=== PATIENT | female | born 1995 | race Caucasian/White ===

== ENCOUNTER 2018-12-29 09:36 | Day surgery (SDC) | payer OTHER ==
--- NOTE | 2018-12-28 22:17 | PDGENHP ---
History and Physical - Chief Complaint LEFT HIP PAIN - History of Present Illness 1. Left Femoroacetabular impingement (YAIMA) 2. Left~Borderline Hip Dyplasia 3. 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 Richardson (Right in 10/2011 and left side late 11/11). Took a year to recover and was able to return to skating - but only ice dancing , not singles - because landing jumps was painful. No longer painful to sit any longer. ~Was able to compete in ice dancing on a national level through college. Prior to her right hip scope she also reports a sensation of right hip jumping out of the socket while she was figure skating. 1.5 years ago had new right hip pain, much less - but does occur occasionally on the left hip. Left hip never hurts, unless right hip is hurting. Saw Dr. Richardson in April who referred her to us.~ Presentation today is of~anterior~LEFT~hip pain - deep. ~The hip~does not~wake her~at night and~does~click and catch on~her. Sitting~can be uncomfortable~for her.~Jameeldoes not~report suffering from lower back pain episodes. Jameelhas~participated in physical therapy for many years~and~has not~tried other conservative measures including. She~has not~received sufficient symptomatic improvement. Jameelhas~utilized medication for pain management, including NSAID.~ Jameelhas used medication for intermittently for~~years. Jameelalso has pain in left - just not as bad as right. Jameelunderstands that~bartolo~has a hip and pelvis problem which should be researched and wishes to get a better understanding of~her~hip status, followed by an establishment of a treatment strategy, hoping~she~would be able to get back to~her~well being active life. History: Past medical history:~~ Patient~~has no past medical history on file.~Mother reports h/o tibial torsion. ~ Relevant familial history:~None which is relevant~ Past surgical history:~ 10/2011 R hip arthroscopy, 11/2011 L hip arthroscopy by Dr. Richardson, uterine polyp removal 2016. Jameeldenies problematic issues with general anesthesia in the past - except PONV. I have reviewed, verified and agree with the past medical, surgical, family and social history. ALLERGIES:~is allergic to codeine; other; and penicillins. Objective: Physical Examination: Jameelis 5~feet~3~inches tall and weighs~162~Lbs. Jameelis AAO x3; bartolo~ is well-nourished, in NAD. Skin is warm and dry. ~Breathing is non-labored. ~CV with RRR by pulse. Abdomen is soft, NTND. Currently,~bartolo~walks with a~normal~gait. Trendelenburg sign is~negative~and proprioception~is reduced,~both~sides. She~presents~with mild~signs of joint laxity.~Beightons Score:~5 ~ Lower spine examination is~negative~for sciatic or femoral nerve irritation with negative~SLR &~femoral stretch tests. Range of motion of the spine is normal~for flexion, extension, and rotations,~with no~associated pain. Strength, Sensation and pulses are~normal -~bilaterally Ankles and knees exams are~normal~and~no~mal-alignment is evident.~ She~has~no leg length discrepancy. Thigh circumference is~symmetric~with no evidence for muscle atrophy~on both~ sides. Hip ROM (degrees): FL ER At 90~hip FL IR At 90~hip FL AB AD EX IR Neutral hip ER Neutral hip R 95 50 25 40 5 10 50 35 L 95 50 30 40 5 10 60 30 Specific hip and pelvis tests: Impingement Test DAKOTA Roll Add. Longus R +++ Negative Negative Negative L +++ Negative Negative Negative Glut. Med ITB Posterior Imp R Negative 5/5 strength Negative 5/5 strength Negative L Negative 5/5 strength Negative 5/5 strength Negative Squeeze test measured~normal Bony Symphysis pubis is~pain free~to touch while concentric activity of the rectus abdominis, does not~produce pain at its insertion. Ilio Psos specific tests are~negative for pain during cycling for~both hips~and remarkable for painful snap HF has~no pain~both hips. No~~capsule tenderness bilaterally Greater trochanteric burse is~painful~on both hips.~+ only Piriformis tests: FAIR is~negative,~with no~local signs of neuritis related to sciatic nerve. SIJs examination is~normal~with~normal~DAKOTA in relation and local tenderness. Hamstrings tests are~negative~both hips. On a daily basis, the following percentages reflect~Saray's overall total pain: Deep hip:~100% Imaging: Radiology studies which I~have personally reviewed, analyzed and measured are below: XR: AP of the hip and pelvis: Performed in a~good~technique Coccyx to pubic symphysis distance~2.9~cm. 0~degrees caudal [place]~Lines are preserved. No~Pathological signs are seen in the Symphysis Pubis.~ No~Pathological signs are seen at the Ischial~tuberosity. ~ Specific measurements show: NSA~ LCE Sourcil~Angle Sharp's angle Lat. Cam Lat. Pincer C.Over~sign Head~Coverage % ATDmm R 137 17 13 48 N N N 69 + L 132 24 9 39 N N N 79 + Pos. wall sign ISS NAD ~~Dysplasia Comments R Negative Negative 20~mm ++ L Negative Negative 17.3~mm + Sclerosis Sup. Lat. OA Cysts Joint Space-WBZ Joint Space-Medial R Negative Negative Negative 4.4~mm 4.8~mm L Negative Negative Negative 4.9~mm 4.3~mm X Table lateral: Anterior cam lesion is~not~seen~on both hips. Alpha Angle: ~ Right~44~dergrees Left~47~degrees MRI shows:~03/24/18 of left hip shows anterior labral tear, small cysts at likely location of anchors, small amount of cartilage fissuring. Potential capsular adhesion to labrum anteriorly.~ Impression and plan:Carly So~is a~23 y.o.~active female~suffering from symptomatic~LEFT~hip pain due to Hip Dyplasia~and clinical femoral antetorsion (h/o hip scope for YAIMA with Dr. Richardson in 2010)~causing significant disability to~her~and altering~her~ sport and life activities. Physical examination, imaging, and~her~story correspond with the diagnosis mentioned above. I~explained that hip dysplasia is a condition wherein the hip joint has excessive play and instability due to a variety of factors, including the depth and adequacy of the socket, the orientation of the femur bone, and ligament laxity around the hip joint. Dysplasia ranges in severity from borderline to jada, with treatment options being specific to the specific nature of the problem. Left untreated, the instability in the hip joint can cause progressive tearing of the labrum and deterioration of the surface cartilage, ultimately resulting in progressive osteoarthritis of the hip. I reviewed conservative treatment options for dysplasia including activity modification to avoid positions of instability, physical therapy, non-steroidal anti-inflammatory medications, and various injections (corticosteroid and PRP) aimed at reducing inflammation in the hip joint or/and preventing dynamic instability and impingement. Although these measures may help to buy time, they are not a definitive solution to the problem given the underlying abnormality in the shape of the hip joint. Patients who have failed conservative management and continue to experience symptoms are candidates for definitive surgical treatment, which may consist of hip arthroscopy alone or in combination with more invasive bony realignment procedures of the hip socket and/or femur called periacetabular osteotomy (IGNACIO) or derotational femoral osteotomy (DFO). Hip arthroscopy typically includes treating the labrum with either repair or reconstruction of the torn labrum; as well as addressing the underlying abnormalities by restoring the normal shape of the hip joint. ~If the cartilage is damaged a Microfracture surgical procedure may also be necessary to help stimulate the growth of fibrocartilage. If a patient requires a labral reconstruction or a Microfracture, the initial rehabilitation from the surgery may take longer, but the skilled nursing results are typically favorable. Saray~will review the info presented. In order to obtain more detailed information regarding the alignment, orientation, and shape of the bony hip and pelvis I will order a CT scan to be performed. The results of the CT scan, including femoral torsion and acetabular version measured values and 3D images, will aid me in deciding on the best treatment strategy and surgical pre-planning. Saray will follow-up with us after her CT to discuss plans moving forward. She will also do a formal trial of PT with this new hip pain over the past 1.5 years. Saray~is happy with this plan. I have also supplied~her~with handouts, outlining the expected surgical treatment and rehab involved. I wish~Saray~all the best, ~~ Mara Becker MD History Information - Allergies/Home Medication List Allergies/Adverse Reactions: codeine Allergy (Verified 12/26/18 12:43) Vomiting Penicillins Allergy (Verified 12/26/18 12:43) itching/rash shellfish derived Allergy (Verified 12/26/18 12:43) Anaphylaxis Home Medications: Cetirizine [ZyrTEC 10 mg (*)] PRN 06/27/18 [Last Taken 06/30/18] Multivitamins [Multivitamin (*)] 06/27/18 [Last Taken 12/26/18] Naproxen Sodium [Aleve 220 MG (*)] 12/26/18 [Last Taken Unknown] I have personally reviewed and updated: medical history - Social History Smoking Status: Never smoked Review of Systems Review of Systems: Physical Exam Physical Exam:
[2018-12-29] MEDS ORDERED: BUPIVACAINE 0.25% 30 ML SDV ONE (09:52)
[2018-12-29] MEDS ORDERED: EPINEPHrine 30 MG/30 ML MDV (0.1 MG/0.1 ML) ONE (09:52)
[2018-12-29] MEDS ORDERED: ceFAZolin 2 GM/DEXTROSE 100 ML IV ONE (09:57)
[2018-12-29] MEDS ORDERED: ACETAMINOPHEN 500 MG TAB PO ONE (09:57)
[2018-12-29] MEDS ORDERED: PREGABALIN 150 MG CAP PO ONE (09:57)
[2018-12-29] MEDS ORDERED: LR 1,000 ML IV ONE (09:58)
[2018-12-29] MEDS ORDERED: LIDOCAINE 1% 2 ML INJ ID PRN (09:58)
[2018-12-29] MEDS ORDERED: DEXAMETHASONE 4 MG/ML VIAL ONE (11:00)
[2018-12-29] MEDS ORDERED: ROCURONIUM 100 MG/10 ML VIAL ONE (11:00)
[2018-12-29] MEDS ORDERED: LIDOCAINE 2% 100 MG/5 ML SYR ONE (11:00)
[2018-12-29] MEDS ORDERED: fentaNYL 100 MCG/2 ML INJ ONE ×5 (11:00→17:28)
[2018-12-29] MEDS ORDERED: PROPOFOL 200 MG/20 ML VIAL ONE (11:01)
[2018-12-29] MEDS ORDERED: SCOPOLAMINE HYDROBROMIDE 1 MG/3 DAYS PATCH TD ONE (11:35)
[2018-12-29] MEDS ORDERED: MIDAZOLAM 2 MG/2 ML VIAL IVP ONE (11:49)
--- NOTE | 2018-12-29 11:51 | PDANEPAE ---
ANE History of Present Illness left hip scope for IGNACIO net week ANE Past Medical History - Cardiovascular History Hx Hypertension: No Hx Arrhythmias: No Hx Chest Pain: No Hx Coronary Artery / Peripheral Vascular Disease: No Hx CHF / Valvular Disease: No Hx Palpitations: No - Pulmonary History Hx COPD: No Hx Asthma/Reactive Airway Disease: No Hx Recent Upper Respiratory Infection: No Hx Oxygen in Use at Home: No Hx Sleep Apnea: No Sleep Apnea Screening Result - Last Documented: Negative - Neurologic History Hx Cerebrovascular Accident: No Hx Seizures: No Hx Dementia: No - Endocrine History Hx Diabetes: No - Renal History Hx Renal Disorders: Yes Renal History Comment: hx of uti's - Liver History Hx Hepatic Disorders: No - Neurological & Psychiatric Hx Hx Neurological and Psychiatric Disorders: No - Cancer History Hx Cancer: No - Congenital Disorder History Hx Congenital Disorders: Yes Congenital History Comment: HIP DYSPLASIA - GI History Hx Gastrointestinal Disorders: No - Other Health History Other Health History: none - Chronic Pain History Chronic Pain: Yes (left hip) - Surgical History Prior Surgeries: 07/07/18 right IGNACIO with [facility]. RT HIP FEMOROPLASTY/LABRAL REPAIR 06/30/18. SONIA HIP SCOPE 2010. REMVL UTERINE POLYP 2016. WISDOM TEETH 2006 ANE Review of Systems Review of Systems: - Exercise capacity METS (RN): 5 METS ANE Patient History - Allergies Allergies/Adverse Reactions: codeine Allergy (Verified 12/26/18 12:43) Vomiting Penicillins Allergy (Verified 12/26/18 12:43) itching/rash shellfish derived Allergy (Verified 12/26/18 12:43) Anaphylaxis - Home Medications Home Medications: Cetirizine [ZyrTEC 10 mg (*)] PRN 06/27/18 [Last Taken 12/22/18] Multivitamins [Multivitamin (*)] 06/27/18 [Last Taken 12/26/18] Naproxen Sodium [Aleve 220 MG (*)] 12/26/18 [Last Taken 07/02/18] - NPO status NPO Since - Liquids (Date): 12/29/18 NPO Since - Liquids (Time): 08:00 NPO Since - Solids (Date): 12/28/18 NPO Since - Solids (Time): 20:00 - Smoking Hx Smoking Status: Never smoked - Family Anes Hx Family Hx Anesthesia Complications: none ANE Labs/Vital Signs - Vital Signs Height: 160.02 cm Weight: 75.75 kg ANE Physical Exam - Airway Neck exam: FROM Mallampati Score: Class 1 Mouth exam: normal dental/mouth exam - Pulmonary Pulmonary: no respiratory distress, no rales or rhonchi - Cardiovascular Cardiovascular: regular rate and rhythym, no murmur, rub, or gallop - ASA Status ASA Status: II ANE Anesthesia Plan Anesthesia Plan: general endotracheal anesthesia Total IV Anesthesia: No
[2018-12-29] MEDS ORDERED: SCOPOLAMINE HYDROBROMIDE 1 MG/3 DAYS PATCH TD SCH (12:00)
[2018-12-29] MEDS ORDERED: PROPOFOL/EMULSION 500 MG/50 ML BOTTLE IV ONE ×5 (12:20→15:21)
[2018-12-29] MEDS ORDERED: SUGAMMADEX SODIUM 200 MG/2 ML VIAL IVP ONE (15:47)
[2018-12-29] MEDS ORDERED: NALOXONE HCL 0.4 MG/ML INJ IVP PRN (15:57)
[2018-12-29] MEDS ORDERED: DIAZEPAM 5 MG/ML 1 ML SYR IVP PRN (15:57)
[2018-12-29] MEDS ORDERED: PROMETHAZINE HCL 25 MG/ML INJ IVP PRN (15:57)
[2018-12-29] MEDS ORDERED: HYDROmorphONE/DILAUDID 2 MG/ML INJ IVP PRN (15:57)
[2018-12-29] MEDS ORDERED: MEPERIDINE 25 MG/0.5 ML AMP IVP PRN (15:57)
[2018-12-29] MEDS ORDERED: LR 500 ML IV PRN (15:57)
--- NOTE | 2018-12-29 16:24 | POSTANESTH ---
Post Anesthetic Evaluation Cardiovascular Status: Normal, Stable Respiratory Status: Normal, Stable Level of Consciousness/Mental Status: Can Participate in Eval, Moderately Sleepy Pain Control: Adequate, Prn Tx Ordered Nausea/Vomiting Control: Adequate, Prn Tx Ordered Complications Possibly Related to Anesthesia: None Noted
[2018-12-29] MEDS: fentaNYL 100 MCG/2 ML INJ IVP PRN ×4 (16:46→17:29)
[2018-12-29] MEDS: oxyCODONE IR 5 MG TAB PO PRN ×2 (17:33→18:22)
[2018-12-29] MEDS ORDERED: oxyCODONE IR 5 MG TAB ONE ×2 (17:33→18:20)
--- NOTE | 2018-12-29 17:39 | POSTOPPROG ---
Post Op Note Date of Operation: 12/29/18 Surgeon: Morris Grimaldo Global Sales Director: Dr. Arrieta Anesthesia: GET(General Endotracheal) Pre-op Diagnosis: LEFT YAIMA Post-op Diagnosis: LEFT YAIMA Procedure: Left Hip Arthroscopy Inf/Abcess present in the surg proc area at time of surgery?: No
[2018-12-29 19:22] VITALS: BP 103/62
[2019-01-01] MEDS ORDERED: PATCH REMOVAL 1 EA PATCH TD SCH (11:49)
== END 2018-12-29 17:35 | disposition home or self-care (01) ==
LOC: FSGY 09:36
PROVIDERS: ATTEND Orthopaedic Surgery Sports Medicine
PROC: 0SQB4ZZ Repair Left Hip Joint, Percutaneous Endoscopic Approach (ICD-10-PCS; principal; 2018-12-29 11:00)
PROC: BQ111ZZ Fluoroscopy of Left Hip using Low Osmolar Contrast (ICD-10-PCS; principal; 2018-12-29 11:00)
PROC: 0SBB4ZZ Excision of Left Hip Joint, Percutaneous Endoscopic Approach (ICD-10-PCS; principal; 2018-12-29 11:00)
DX: M25.852 Other specified joint disorders, left hip (principal); Q65.89 Other specified congenital deformities of hip; M65.88 Other synovitis and tenosynovitis, other site; Z87.440 Personal history of urinary (tract) infections; Z88.0 Allergy status to penicillin
CPT/HCPCS: C1713; J0171; J0690; J1100; J2001; J2250; J2704; J3010

== ENCOUNTER 2019-01-06 06:04 | Inpatient (IN) | payer OTHER ==
--- NOTE | 2019-01-05 20:44 | PDGENHP ---
History and Physical - Chief Complaint LEFT HIP PAIN - History of Present Illness 2. Left Femoroacetabular impingement (YAIMA) 3. Left~Borderline Hip Dyplasia 4. 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 Richardson (Right in 10/2011 and left side late 11/11). Took a year to recover and was able to return to skating - but only ice dancing , not singles - because landing jumps was painful. No longer painful to sit any longer. ~Was able to compete in ice dancing on a national level through college. Prior to her right hip scope she also reports a sensation of right hip jumping out of the socket while she was figure skating. Presentation today is of~anterior~LEFT~hip pain - deep. ~The hip~does not~wake her~at night and~does~click and catch on~her. Sitting~can be uncomfortable~for her.~Jameeldoes not~report suffering from lower back pain episodes. Jameelhas~participated in physical therapy for many years~and~has not~tried other conservative measures including. She~has not~received sufficient symptomatic improvement. Jameelhas~utilized medication for pain management, including NSAID.~ Jameelhas used medication for intermittently for~~years. Jameelunderstands that~bartolo~has a hip and pelvis problem which should be researched and wishes to get a better understanding of~her~hip status, followed by an establishment of a treatment strategy, hoping~bartolo~would be able to get back to~her~well being active life. History: Past medical history:~~ Patient~~has no past medical history on file.~Mother reports h/o tibial torsion. ~ Relevant familial history:~None which is relevant~ Past surgical history:~ 10/2011 R hip arthroscopy, 11/2011 L hip arthroscopy by Dr. Richardson, uterine polyp removal 2016, Right revision hip arthroscopy/Right IGNACIO Saray~denies problematic issues with general anesthesia in the past - except PONV. I have reviewed, verified and agree with the past medical, surgical, family and social history. ALLERGIES:~is allergic to codeine; other; and penicillins. Objective: Physical Examination: Jameelis 5~feet~3~inches tall and weighs~162~Lbs. Jameelis AAO x3; she~ is well-nourished, in NAD. Skin is warm and dry. ~Breathing is non-labored. ~CV with RRR by pulse. Abdomen is soft, NTND. Currently,~she~walks with a~normal~gait. Trendelenburg sign is~negative~and proprioception~is reduced,~both~sides. She~presents~with mild~signs of joint laxity.~Beightons Score:~5 ~ Lower spine examination is~negative~for sciatic or femoral nerve irritation with negative~SLR &~femoral stretch tests. Range of motion of the spine is normal~for flexion, extension, and rotations,~with no~associated pain. Strength, Sensation and pulses are~normal -~bilaterally Ankles and knees exams are~normal~and~no~mal-alignment is evident.~ She~has~no leg length discrepancy. Thigh circumference is~symmetric~with no evidence for muscle atrophy~on both~ sides. Hip ROM (degrees): FL ER At 90~hip FL IR At 90~hip FL AB AD EX IR Neutral hip ER Neutral hip R 95 50 25 40 5 10 50 35 L 95 50 30 40 5 10 60 30 Specific hip and pelvis tests: Impingement Test DAKOTA Roll Add. Longus R +++ Negative Negative Negative L +++ Negative Negative Negative Glut. Med ITB Posterior Imp R Negative 5/5 strength Negative 5/5 strength Negative L Negative 5/5 strength Negative 5/5 strength Negative Squeeze test measured~normal Bony Symphysis pubis is~pain free~to touch while concentric activity of the rectus abdominis, does not~produce pain at its insertion. Ilio Psos specific tests are~negative for pain during cycling for~both hips~and remarkable for painful snap HF has~no pain~both hips. No~~capsule tenderness bilaterally Greater trochanteric burse is~painful~on both hips.~+ only Piriformis tests: FAIR is~negative,~with no~local signs of neuritis related to sciatic nerve. SIJs examination is~normal~with~normal~DAKOTA in relation and local tenderness. Hamstrings tests are~negative~both hips. On a daily basis, the following percentages reflect~Saray's overall total pain: Deep hip:~100% Imaging: Radiology studies which I~have personally reviewed, analyzed and measured are below: XR: AP of the hip and pelvis: Performed in a~good~technique Coccyx to pubic symphysis distance~2.9~cm. 0~degrees caudal [place]~Lines are preserved. No~Pathological signs are seen in the Symphysis Pubis.~ No~Pathological signs are seen at the Ischial~tuberosity. ~ Specific measurements show: NSA~ LCE Sourcil~Angle Sharp's angle Lat. Cam Lat. Pincer C.Over~sign Head~Coverage % ATDmm R 137 17 13 48 N N N 69 + L 132 24 9 39 N N N 79 + Pos. wall sign ISS NAD ~~Dysplasia Comments R Negative Negative 20~mm ++ L Negative Negative 17.3~mm + Sclerosis Sup. Lat. OA Cysts Joint Space-WBZ Joint Space-Medial R Negative Negative Negative 4.4~mm 4.8~mm L Negative Negative Negative 4.9~mm 4.3~mm X Table lateral: Anterior cam lesion is~not~seen~on both hips. Alpha Angle: ~ Right~44~dergrees Left~47~degrees MRI shows:~03/24/18 of right hip shows anterior labral tear, small cysts at likely location of anchors, small amount of cartilage fissuring. Potential capsular adhesion to labrum anteriorly.~ Impression and plan:Carly So~is a~23 y.o.~active female~suffering from symptomatic~LEFT~hip pain due to~Hip Dyplasia~and clinical femoral antetorsion (h/o hip scope for YAIMA with Dr. Richardson in 2010)~causing significant disability to~her~and altering~her~ sport and life activities. Physical examination, imaging, and~her~story correspond with the diagnosis mentioned above. I~explained that hip dysplasia is a condition wherein the hip joint has excessive play and instability due to a variety of factors, including the depth and adequacy of the socket, the orientation of the femur bone, and ligament laxity around the hip joint. Dysplasia ranges in severity from borderline to jada, with treatment options being specific to the specific nature of the problem. Left untreated, the instability in the hip joint can cause progressive tearing of the labrum and deterioration of the surface cartilage, ultimately resulting in progressive osteoarthritis of the hip. I reviewed conservative treatment options for dysplasia including activity modification to avoid positions of instability, physical therapy, non-steroidal anti-inflammatory medications, and various injections (corticosteroid and PRP) aimed at reducing inflammation in the hip joint or/and preventing dynamic instability and impingement. Although these measures may help to buy time, they are not a definitive solution to the problem given the underlying abnormality in the shape of the hip joint. Patients who have failed conservative management and continue to experience symptoms are candidates for definitive surgical treatment, which may consist of hip arthroscopy alone or in combination with more invasive bony realignment procedures of the hip socket and/or femur called periacetabular osteotomy (IGNACIO) or derotational femoral osteotomy (DFO). Hip arthroscopy typically includes treating the labrum with either repair or reconstruction of the torn labrum; as well as addressing the underlying abnormalities by restoring the normal shape of the hip joint. ~If the cartilage is damaged a Microfracture surgical procedure may also be necessary to help stimulate the growth of fibrocartilage. If a patient requires a labral reconstruction or a Microfracture, the initial rehabilitation from the surgery may take longer, but the local intermodal truck driver results are typically favorable. Saray~will review the info presented. In order to obtain more detailed information regarding the alignment, orientation, and shape of the bony hip and pelvis I will order a CT scan to be performed. The results of the CT scan, including femoral torsion and acetabular version measured values and 3D images, will aid me in deciding on the best treatment strategy and surgical pre-planning. Saray will follow-up with us after her CT to discuss plans moving forward. She will also do a formal trial of PT with this new hip pain over the past 1.5 years. Saray~is happy with this plan. I have also supplied~her~with handouts, outlining the expected surgical treatment and rehab involved. I wish~Saray~all the best, ~~ Mara Becker MD History Information - Allergies/Home Medication List Allergies/Adverse Reactions: codeine Allergy (Verified 01/01/19 10:49) Vomiting Penicillins Allergy (Verified 01/01/19 10:49) itching/rash shellfish derived Allergy (Verified 01/01/19 10:49) Anaphylaxis Home Medications: Cetirizine [ZyrTEC 10 mg (*)] PRN 06/27/18 [Last Taken 12/22/18] Multivitamins [Multivitamin (*)] 06/27/18 [Last Taken 12/26/18] Naproxen Sodium [Aleve 220 MG (*)] 12/26/18 [Last Taken 07/02/18] DIAZEPAM 01/01/19 [Last Taken Unknown] Percocet 5-325 mg Tablet 01/01/19 [Last Taken Unknown] I have personally reviewed and updated: medical history - Social History Smoking Status: Never smoked Review of Systems Review of Systems: Physical Exam Physical Exam:
[2019-01-06] MEDS ORDERED: SCOPOLAMINE HYDROBROMIDE 1 MG/3 DAYS PATCH TD ONE (06:28)
[2019-01-06] MEDS ORDERED: ACETAMINOPHEN 500 MG TAB PO ONE (06:28)
[2019-01-06] MEDS ORDERED: ceFAZolin 2 GM/DEXTROSE 100 ML IV ONE (06:28)
[2019-01-06] MEDS ORDERED: PREGABALIN 150 MG CAP PO ONE (06:28)
[2019-01-06] MEDS ORDERED: TRANEXAMIC ACID 1,000 MG in NS 100 ML IV ONE (06:28)
[2019-01-06] MEDS ORDERED: LR 1,000 ML IV ONE (06:34)
[2019-01-06] MEDS ORDERED: CITRATE DEXTROSE SOLN 500 ML BAG ONE ×2 (06:46→11:34)
[2019-01-06] MEDS ORDERED: CLINDAMYCIN 900 MG/DEXTROSE 50 ML IV ONE ×2 (07:28→12:36)
[2019-01-06] MEDS ORDERED: MIDAZOLAM 2 MG/2 ML VIAL ONE ×2 (08:13→08:46)
[2019-01-06] MEDS ORDERED: PROPOFOL/EMULSION 500 MG/50 ML BOTTLE IV ONE (08:17)
[2019-01-06] MEDS ORDERED: fentaNYL 100 MCG/2 ML INJ ONE (08:17)
[2019-01-06] MEDS ORDERED: morphINE PF 5 MG/10 ML INJ ONE (08:19)
[2019-01-06] MEDS ORDERED: BUPIVACAINE/DEXTROSE 7.5MG/ML 2 ML SPINAL AMP SP ONE (08:25)
--- NOTE | 2019-01-06 09:36 | PDANEPAE ---
ANE Past Medical History - Cardiovascular History Hx Hypertension: No Hx Arrhythmias: No Hx Chest Pain: No Hx Coronary Artery / Peripheral Vascular Disease: No Hx CHF / Valvular Disease: No Hx Palpitations: No - Pulmonary History Hx COPD: No Hx Asthma/Reactive Airway Disease: No Hx Recent Upper Respiratory Infection: No Hx Oxygen in Use at Home: No Hx Sleep Apnea: No Sleep Apnea Screening Result - Last Documented: Negative - Neurologic History Hx Cerebrovascular Accident: No Hx Seizures: No Hx Dementia: No - Endocrine History Hx Diabetes: No - Renal History Hx Renal Disorders: Yes Renal History Comment: hx of uti's - Liver History Hx Hepatic Disorders: No - Neurological & Psychiatric Hx Hx Neurological and Psychiatric Disorders: No - Cancer History Hx Cancer: No - Congenital Disorder History Hx Congenital Disorders: Yes Congenital History Comment: HIP DYSPLASIA - GI History Hx Gastrointestinal Disorders: No - Other Health History Other Health History: none - Chronic Pain History Chronic Pain: Yes (left hip) - Surgical History Prior Surgeries: 12/29/18 left hip scope with Sneha-Boo. 07/07/18 right IGNACIO with Sneha-Boo. RT HIP FEMOROPLASTY/LABRAL REPAIR 06/30/18. SONIA HIP SCOPE 2010. REMVL UTERINE POLYP 2016. WISDOM TEETH 2006 ANE Review of Systems Review of Systems: - Exercise capacity METS (RN): 5 METS ANE Patient History - Allergies Allergies/Adverse Reactions: codeine Allergy (Verified 01/01/19 10:49) Vomiting Penicillins Allergy (Verified 01/01/19 10:49) itching/rash shellfish derived Allergy (Verified 01/01/19 10:49) Anaphylaxis - Home Medications Home Medications: Cetirizine [ZyrTEC 10 mg (*)] PRN 06/27/18 [Last Taken 12/31/18] Multivitamins [Multivitamin (*)] 06/27/18 [Last Taken 12/26/18] Naproxen Sodium [Aleve 220 MG (*)] 12/26/18 [Last Taken 12/31/18] DIAZEPAM 01/01/19 [Last Taken 01/05/19 21:30] Percocet 5-325 mg Tablet 01/01/19 [Last Taken 01/05/19 21:30] - NPO status NPO Since - Liquids (Date): 01/06/19 NPO Since - Liquids (Time): 04:30 NPO Since - Solids (Date): 01/05/19 NPO Since - Solids (Time): 20:00 - Smoking Hx Smoking Status: Never smoked - Family Anes Hx Family Hx Anesthesia Complications: none ANE Labs/Vital Signs - Labs Result Diagrams: 01/06/19 07:12 - Vital Signs Blood Pressure: 112/79 Heart Rate: 90 Respiratory Rate: 16 O2 Sat (%): 96 Height: 160.02 cm Weight: 75.75 kg ANE Physical Exam - Airway Neck exam: FROM Mallampati Score: Class 1 Mouth exam: normal dental/mouth exam - Pulmonary Pulmonary: no respiratory distress, no rales or rhonchi, clear to auscultation - Cardiovascular Cardiovascular: regular rate and rhythym, no murmur, rub, or gallop - ASA Status ASA Status: I ANE Anesthesia Plan Anesthesia Plan: general endotracheal anesthesia, spinal Lines/Monitors: additional IV
[2019-01-06] MEDS ORDERED: ROCURONIUM 50 MG/5 ML VIAL ONE ×2 (09:39→10:04)
[2019-01-06] MEDS ORDERED: LIDOCAINE 2% 5 ML SDV ONE (09:39)
[2019-01-06] MEDS ORDERED: METOCLOPRAMIDE 10 MG/2 ML VIAL ONE (09:39)
[2019-01-06] MEDS ORDERED: RANITIDINE 50 MG/2 ML VIAL ONE (09:39)
[2019-01-06] MEDS ORDERED: CALCIUM CHLORIDE 1 GM/10 ML INJ ONE (09:42)
[2019-01-06] MEDS ORDERED: ROCURONIUM 100 MG/10 ML VIAL ONE (10:04)
[2019-01-06] MEDS ORDERED: MIDAZOLAM 2 MG/2 ML VIAL IVP ONE (10:23)
[2019-01-06] MEDS ORDERED: ONDANSETRON 4 MG/2 ML VIAL IVP PRN ×2 (10:41→15:27)
[2019-01-06] MEDS ORDERED: METOCLOPRAMIDE 10 MG/2 ML VIAL IVP PRN (10:41)
[2019-01-06] MEDS ORDERED: DIAZEPAM 5 MG/ML 1 ML SYR IVP PRN (10:41)
[2019-01-06] MEDS ORDERED: NALOXONE HCL 0.4 MG/ML INJ IVP PRN ×3 (10:41→15:32)
[2019-01-06] MEDS ORDERED: fentaNYL 100 MCG/2 ML INJ IVP PRN (10:41)
[2019-01-06] MEDS ORDERED: DEXAMETHASONE 4 MG/ML VIAL IVP PRN (10:41)
[2019-01-06] MEDS ORDERED: ALBUTEROL 3 ML DEYVIAL IH PRN (10:41)
[2019-01-06] MEDS ORDERED: LR 500 ML IV PRN (10:41)
[2019-01-06] MEDS ORDERED: PROMETHAZINE HCL 25 MG/ML INJ IVP PRN (10:41)
[2019-01-06] MEDS ORDERED: PROPOFOL 200 MG/20 ML VIAL ONE (11:07)
[2019-01-06] MEDS ORDERED: PHENYLEPHRINE HCL 100 MCG/ML SYR ONE (11:24)
[2019-01-06] MEDS ORDERED: VASOPRESSIN 20 UNIT/ML VIAL ONE (13:45)
[2019-01-06] MEDS ORDERED: KETOROLAC 30 MG/1 ML SDV ONE (14:35)
[2019-01-06] MEDS ORDERED: ONDANSETRON 4 MG/2 ML VIAL ONE (14:35)
[2019-01-06] MEDS ORDERED: SUGAMMADEX SODIUM 200 MG/2 ML VIAL IVP ONE (14:35)
[2019-01-06] MEDS ORDERED: BACITRACIN ZINC 0.5 OZ OINTTUBE TP ONE (14:46)
[2019-01-06] MEDS ORDERED: ONDANSETRON DISINTEGRATING 4 MG TAB PO PRN (15:27)
[2019-01-06] MEDS ORDERED: BISACODYL 10 MG SUPP PR PRN (15:27)
[2019-01-06] MEDS ORDERED: LACTULOSE 20 GM/30 ML UDCUP PO PRN (15:27)
[2019-01-06] MEDS ORDERED: MAGNESIUM HYDROXIDE 30 ML UDCUP PO PRN (15:27)
[2019-01-06] MEDS ORDERED: NS 1,000 ML IV SCH (15:30)
[2019-01-06] MEDS ORDERED: CETIRIZINE 10 MG TAB PO PRN (15:31)
[2019-01-06] MEDS ORDERED: HYDROmorphONE/DILAUDID 6 MG/30 ML PCA IV PRN (15:32)
[2019-01-06] MEDS ORDERED: diphenhydrAMINE 25 MG CAP PO PRN (15:32)
[2019-01-06] MEDS ORDERED: oxyCODONE IR 15 MG TAB PO PRN (15:34)
--- NOTE | 2019-01-06 16:54 | PDMN ---
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
[2019-01-06] MEDS: oxyCODONE IR 5 MG TAB PO SCH ×3 (17:59→21:59)
[2019-01-06] MEDS: NAPROXEN SODIUM 220 MG TAB PO SCH ×2 (18:03→21:59)
--- NOTE | 2019-01-06 18:32 | SUROPNOTE ---
[place] Operative Report - Surgery OPERATION NOTE~on Saray Rice Surgery was performed at:~[facility] Date of Surgery:~12/29/2018 Diagnosis:~ 1. Left~Femoroacetabular impingement (YAIMA) Cam type,~with~resultant labral tear and everted labrum 2. Left~Borderline Hip Dyplasia Operation:~Left REVISION~Arthroscopic Labral repair~and ADVANCEMENT, CAM resection, Synovectomy, Capsular repair Indication: Failure to obtain satisfactory results with long standing conservative measures. Surgeon:~~~~~~~~~~~Morris Grimaldo MD ~ Pecan Mallow Dipper:~~~~~~~~~~~~~Tim Cerna MS PA-C (no qualified resident was able to assist with this case) Anaesthetic:~~~~~General Findings~ Left~Hip: Labrum:~ossified and everted off the rim to compromise seal Acetabulum:~Normal Fovea:~Partial tear of LT Femoral Head:~Normal cartilage Synovium:~mild moderate~synovitis Peripheral Compartment:~Anterolateral CAM between~4~O'clock superiorly and 6~O' clock anteriorly Procedure: Supine on operating table. General anaesthetic. Antibiotics given. Standard traction set up, without perineal post. A spinal needle was guided to the femoral head neck junction and traction gradually applied with the joint vented. Local anesthetic infiltrated into the skin around the portals. Once~18mm of distraction was achieved the hip needle was then passed into the joint staying as close to the femoral head as possible. A Nytenol wire was passed through the hip needle ensuring that it passed all the way to the fovea to confirm central placement of the needle. Skin was incised and then the portals sequentially dilated to 7 mm. Switching stick inserted and 30 scope passed over the top. Under dry scope conditions the anterior portal was created by passing the hip needle into the joint under direct vision. Again this was dilated up to 7 mm and the slotted canule was inserted. The saline was then turned on and the joint irrigated. The joint was carefully inspected and photographed with findings as above. The arthroscope was switched to the 70 scope to complete the inspection. A longitudinal intra portal capsulotomy was then performed using cantwell blade and the 50 Arthrocare wand to connect the two portals. Central Compartment Intervention: Synovectomy was performed.~ (Modifier 22:) In addition to the ute labrum being torn, it was also found to be everted away from the femoral head missing the physiological suction seal function.~In~order to remedy this condition the torn labrum had to be carefully from the rim and advanced towards the femoral head without compromising tissue quality and quantity.~The~labrum was then secured in an inverted position off-traction, making sure it restores the missing suction seal using an inside-out mattress sutra anchors technique. Technique:~With the assistance of the wand the acatabular rim was then exposed between~12~and 3~Oclock and was slightly refined with a motorized gabino to~ ADVANCE labrum and~achieve a bleeding bone for optimal labral healing. The labrum was then~repaired~and Advanced~with~2~peek anchors, achieving good anatomical rim fixation. LT was treated with RF wand to shrink and stabilize reactive tissue.~ Peripheral Compartment Intervention:~ A box-shaped capsulotomy was made with the assistance of SpeedStitch traction suture. This allowed traction on the capsule and a good view of the femoral neck with smaller capsulotomy. The articular margin where sphericity was lost was marked with the Arthrocare wand under X-ray control. Bone lateral to this was removed with the the gabino. Portals were switched to deal with the superior headneck junction. Care was taken not to stray posterior and laterally in view of the location of the retinacular vessels. The cam lesion was addressed from~4~to 6~O'clock. A dynamic impingement test was undertaken and vision with~90 of flexion and~10 of internal rotation to confirm that there was no bony or soft tissue impingement or deformation of the labrum. ~Good clearance was obtained with good labral seal. The joint was thoroughly irrigated of any loose debris and the anterior capsule was repaired with~3~No.1 vicryl stitches, closing 90% of the capsulotomy. The skin was then closed with Nylon. Padded dressing was applied. After surgery,~Saray~moved both lower limbs and had no NV compromise. Specimen - none Bleeding -~10ml Complication - none Evaluation under Anesthesia: Pre: IR 90 ER 90 ABD Flexion Right 15 50 40 95 Left 30 50 40 105 Post op instructions: 1.~Full~weight bearing crutches till IGNACIO 2. Pain killers as prescribed 3. Follow up visit with me, as scheduled, where a rehab protocol would be discussed 4. Avoid hip external rotation for 4 weeks 5. ~~25 days of NSAIDS need to be taken in order to prevent the possible formation of HO ~ Kind regards, ~~ Dr. Morris Grimaldo
--- NOTE | 2019-01-06 19:58 | POSTANESTH ---
Post Anesthetic Evaluation Cardiovascular Status: Normal, Stable, Similar to Pre-Op Cond Respiratory Status: Normal, Stable, Similar to Pre-op Cond. Level of Consciousness/Mental Status: Can Participate in Eval Pain Control: Adequate, Prn Tx Ordered Nausea/Vomiting Control: Adequate, Prn Tx Ordered Complications Possibly Related to Anesthesia: None Noted
[2019-01-06] MEDS: SENNOSIDES/DOCUSATE SODIUM TAB PO SCH (21:59)
[2019-01-07] MEDS: oxyCODONE IR 5 MG TAB PO SCH ×6 (01:59→21:39)
[2019-01-07] MEDS: DIAZEPAM 2 MG TAB PO PRN ×3 (05:51→21:42)
[2019-01-07] MEDS ORDERED: PATCH REMOVAL 1 EA PATCH TD ONE (06:45)
[2019-01-07] MEDS: NAPROXEN SODIUM 220 MG TAB PO SCH ×3 (08:59→21:39)
[2019-01-07] MEDS: PANTOPRAZOLE SODIUM 40 MG TAB PO SCH (09:01)
[2019-01-07] MEDS: SENNOSIDES/DOCUSATE SODIUM TAB PO SCH ×2 (09:01→21:39)
[2019-01-07] MEDS: POLYETHYLENE GLYCOL 3350 17 GM PKT PO PRN (09:01)
[2019-01-07] MEDS ORDERED: NS 500 ML IV ONE (11:33)
--- NOTE | 2019-01-07 12:18 | GCON ---
[f rep st] CONSULTATION CONSULTATION REASON FOR CONSULTATION: Medical management. HISTORY OF PRESENT ILLNESS: Saray Rice is a 23-year-old female who has no significant past medical history. She has been suffering with left hip pain due to left hip dysplasia. She had a left periacetabular osteotomy on the left side with hardware removal on the right side on January 06, with Dr. Grimaldo. She is doing quite well after surgery. Her pain is running around 3-7. Overall , she said it has been well managed. She had a right hip periacetabular osteotomy in July of this past year. The surgery went so well, she was very motivated to get surgery done on her left hip. She denies any chest pain. She denies any shortness of breath. She does have some coughing when she uses the spirometer. Her bowel movements are regular. She was lightheaded when getting out of bed earlier today, but has no complaints of this at this time. Her systolic blood pressure runs in the low to mid 90s. PAST MEDICAL HISTORY: Bilateral hip dysplasia. PAST SURGICAL HISTORY: 1. [place] tooth extraction at age 11. 2. Two hip arthroscopies, 1 in October and 1 in November of 2011. 3. Uterine polyp removal. 4. Right hip revision arthroscopy and IGNACIO in July 2018. SOCIAL HISTORY: She has a boyfriend. She does not have children. 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 She does not smoke. She drinks approximately 1-2 glasses of wine a week. FAMILY HISTORY: Her mom is at the bedside and is healthy. Her father from multiple myeloma approximately 5 years ago at age 69. ALLERGIES: Penicillin causes a rash. Shellfish causes anaphylaxis. Codeine causes vomiting. HOME MEDICATIONS: Zofran ODT 4 mg q.6 hours p.r.n., multivitamin 1 tab daily, Valium 2 mg q.6 hours p.r.n., Zyrtec 10 mg daily p.r.n., Percocet 1-2 tabs q.4- 6 hours p.r.n., and naproxen 500 mg p.o. twice daily. REVIEW OF SYSTEMS: A 10-point review of system was performed and was negative other than pertinent positives in HPI and past medical history. PHYSICAL EXAM: GENERAL: Saray is a 23-year-old female who appears to be in good health. VITAL SIGNS: Blood pressure 90/48, pulse is 89, respiratory rate is 16, O2 saturation on 1 L 95%, temperature is 37.1 Celsius. EYES: Pupils are equal and reactive. EOMs are intact. No conjunctival injection noted. ENT: Normal ears. Hearing intact. NECK: Trachea is midline. CARDIOVASCULAR: She is in a regular rate and rhythm. No murmurs, rubs, or gallops noted. CHEST/LUNGS: Normal respiratory effort. Clear without wheezing , rales, rhonchi. ABDOMEN: Soft, nontender. SKIN: No rashes or ulcers noted. She has swelling in the left hip and left upper thigh area noted without any drainage from her surgical sites. PSYCHIATRIC: She is alert and oriented. Normal mood and affect. Normal judgment, insight, and memory. DATA: Reviewed. A recent WBC is 6.59, hemoglobin of 11.3, hematocrit of 33.1, platelet count of 197. Chemistry: Sodium is 137, potassium 4.6, chloride of 106, CO2 of 27, BUN of 8, creatinine of 0.8, glucose of 86, calcium 8.6. ASSESSMENT/PLAN: 1. Left hip dysplasia, status post periacetabular osteotomy on the left. Care per Orthopedics. Overall, her pain seems to be well managed. 2. Constipation. Bowel protocol. 3. Anemia. This is expected in the postop setting. Will recheck a hemoglobin and hematocrit in the morning. 4. Deep venous thrombosis prophylaxis. Started on aspirin therapy. 5. Lightheadedness with associated hypotension. Will give her a fluid bolus now. Thank you for this consultation of this delightful patient. The hospitalist team will continue to follow her during her hospital stay. /[id number]/MODL MTDD
--- NOTE | 2019-01-07 14:18 | ASMTCMCOM ---
CM Note CM Note Notes: Pt had planned surgery for hip dysplasia. Today PT rec HHC, OT rec pending. Pt mother is involved in her care. CM to follow for d/c planning. Date Signed: 01/07/2019 02:17 PM Electronically Signed By:PRIYANK Gonzalez
--- NOTE | 2019-01-07 15:48 | PDPAINCON ---
Pain Management Consultation Patient referred by : Sneha Haddad - Subjective Pain is: low, well controlled Side effects include: itchiness (mild) - Objective Technique: spinal opioid Sensory and motor exam: block has resolved, no apparent ill effects Vital signs: stable - Assessment/Plan Assessment/Plan: pain well-controlled, continue current mgmt Additional comments: POD s/p IGNACIO with IT morphine for analgesia. Patient reports excellent analgesia until about 0400 today. She has since been receiving PO analgesics with good effect. Spinal effects have receded appropriately. No adverse effects noted aside from mild pruritis, which is tolerable.
--- NOTE | 2019-01-07 18:51 | SOAPPROG ---
SOAP Progress Note Assessment/Plan: Assessment: 23 yo F POD#1 s/p L IGNACIO, R hip HWR. Doing well post-op. Plan: PO/IV pain control NWB LLE with crutches, PT/OT -- will need to do stairs prior to d/c d/c velasquez once OOB SCDs, ASA for DVT ppx AP pelvis XR on POD#3 -- needs to be cleared by Dr. Grimaldo prior to d/c Plan for likely discharge Saturday vs Saturday pending pt progress 01/07/19 18:47 Objective: Vital Signs Temp Pulse Resp BP Pulse Ox 36.9 C 93 16 97/52 L 92 01/07/19 15:39 01/07/19 15:39 01/07/19 15:39 01/07/19 15:39 01/07/19 15:39 Laboratory Results 01/07/19 04:36 01/07/19 04:36 01/06/19 01/07/19 01/08/19 05:59 05:59 05:59 Intake Total 3370 248 Output Total 1096 5 Balance -5 435 Gen: NAD B/L hip dressings c/d/i B/L lateral thigh numbness Distally NVI 5/5 TA, GSC, EHL SILT throughout foot ICD10 Worksheet Patient Problems: Problems Problem Status Onset Hip dysplasia Acute
[2019-01-08] MEDS: oxyCODONE IR 5 MG TAB PO SCH ×6 (02:30→22:21)
[2019-01-08] MEDS: DIAZEPAM 2 MG TAB PO PRN ×2 (08:18→22:20)
[2019-01-08] MEDS: NAPROXEN SODIUM 220 MG TAB PO SCH ×3 (08:18→22:20)
[2019-01-08] MEDS: PANTOPRAZOLE SODIUM 40 MG TAB PO SCH (08:18)
[2019-01-08] MEDS: SENNOSIDES/DOCUSATE SODIUM TAB PO SCH ×2 (08:19→22:20)
[2019-01-08] MEDS: POLYETHYLENE GLYCOL 3350 17 GM PKT PO PRN (08:19)
[2019-01-08] MEDS: ACETAMINOPHEN 325 MG TAB PO PRN ×2 (11:23→17:32)
--- NOTE | 2019-01-08 16:36 | HOSPPROG ---
Hospitalist Progress Note Assessment/Plan: 23 year old female with hip dysplasia, now status post left hip periacetabular osteotomy. Left hip periacetabular osteotomy for hip dysplasia- pain appears to be well controlled today. management per ortho Anemia- H/H dropped from on admission to 10/01 today. Apparently not a lot of blood loss. she has received some IVF which may account for some of the drop, but no obvious bleeding. -Monitor H/H -check reticulocyte index. Hypotension- fluid responsive. Presumed to be due to anemia and dehydration post operatively. Cont to monitor. if orthostatic will give boluses. cont NS until taking good po Constipation- post op bowel regimen Prophy- asa fluids- NS Lytes- WNL Nutrition- regular cor- Full Dispo- inpatient Subjective: some soreness, but manageable. Objective: Vital Signs Temp Pulse Resp BP Pulse Ox 36.8 C 100 17 112/65 92 01/08/19 15:18 01/08/19 15:18 01/08/19 15:18 01/08/19 15:18 01/08/19 15:18 Laboratory Results 01/08/19 04:49 01/07/19 04:36 01/07/19 01/08/19 01/09/19 05:59 05:59 05:59 Intake Total 3370 2960 Output Total 3375 2800 Balance -5 160 - Physical Exam Constitutional: no apparent distress, appears nourished, not in pain Eyes: PERRL, anicteric sclera, EOMI Ears, Nose, Mouth, Throat: moist mucous membranes, hearing normal, ears appear normal, no oral mucosal ulcers Cardiovascular: regular rate and rhythym, no murmur, rub, or gallop Respiratory: no respiratory distress, no rales or rhonchi, clear to auscultation Gastrointestinal: normoactive bowel sounds, soft, non-tender abdomen, no palpable masses Genitourinary: no bladder fullness, no bladder tenderness, no renal bruits Skin: no rashes or abrasions, no fluctuance, no induration Musculoskeletal: full muscle strength, no muscle tenderness, normal joint ROM Neurologic: AAOx3, sensation intact bilaterally Psychiatric: interacting appropriately, not anxious, not encephalopathic, thought process linear Lymph, Heme, Immunologic: no cervical LAD, no supraclavicular LAD ICD10 Worksheet Patient Problems: Problems Problem Status Onset Hip dysplasia Acute
[2019-01-08] MEDS: ASPIRIN EC 81 MG TAB PO SCH (17:32)
[2019-01-09] MEDS: oxyCODONE IR 5 MG TAB PO SCH ×4 (02:15→13:39)
[2019-01-09] MEDS: POLYETHYLENE GLYCOL 3350 17 GM PKT PO PRN (09:18)
[2019-01-09] MEDS: NAPROXEN SODIUM 220 MG TAB PO SCH (09:20)
[2019-01-09] MEDS: SENNOSIDES/DOCUSATE SODIUM TAB PO SCH (09:21)
[2019-01-09] MEDS: ASPIRIN EC 81 MG TAB PO SCH (09:22)
[2019-01-09] MEDS: PANTOPRAZOLE SODIUM 40 MG TAB PO SCH (09:23)
[2019-01-09] MEDS ORDERED: oxyCODONE IR 5 MG TAB PO PRN (11:38)
--- NOTE | 2019-01-09 12:27 | SOAPPROG ---
[facility] Progress Note Assessment/Plan: Assessment: 3rd day post op Left Periacetabular Osteotomy Right Hip Screw removal Plan: D/C home See discharge instructions 01/09/19 12:24 Subjective: Saray is doing quite well today. Her pain is managed with Oxycodone, she is ambulating well and is ready to go home today. She denies sob, cp, or nausea. Objective: Vital Signs Temp Pulse Resp BP Pulse Ox 36.7 C 96 16 102/62 88 L 01/09/19 11:21 01/09/19 11:21 01/09/19 11:21 01/09/19 11:21 01/09/19 11:21 Laboratory Results 01/08/19 04:49 01/07/19 04:36 01/08/19 01/09/19 01/10/19 05:59 05:59 05:59 Intake Total 2960 1620 500 Output Total 2800 700 600 Balance 160 920 -100 Well appearing in NAD Left Hip: dressings clean dry intact edema and scattered ecchymosis some thigh numbness NVI distally full ROM of foot and ankle Right Hip: dressings clean dry intact scattered ecchymosis edema - Pending Discharge Pending Discharge Within 24 Hours: Yes Pending Discharge Date: 01/10/19 Pending Discharge Time: 11:00 ICD10 Worksheet Patient Problems: Problems Problem Status Onset Hip dysplasia Acute
[2019-01-09] MEDS: DIAZEPAM 2 MG TAB PO PRN (13:40)
--- NOTE | 2019-01-09 14:17 | ASMTLACE ---
[facility] Length of stay for Answers: 1 day current admission Acuity / Level of Answers: Yes Care: Did the patient have an inpatient admission? Comorbidities - select Answers: Opioid dependence all that apply / Chronic pain # of Emergency department Answers: 0 visits in the last 6 months Score: 8 Date Signed: 01/09/2019 02:15 PM Electronically Signed By:Jesi Arora RN
--- NOTE | 2019-01-09 14:18 | ASMTCMCOM ---
CM Note CM Note Notes: Pt will dc home today with w/support of family. Pt declines homecare, CM available for any changes. DC Plan: Independent Date Signed: 01/09/2019 02:18 PM Electronically Signed By:Jesi Arora RN
--- NOTE | 2019-01-09 14:19 | HOSPPROG ---
Hospitalist Progress Note Assessment/Plan: 23 year old female with hip dysplasia, now status post left hip periacetabular osteotomy. First encounter, chart reviewed. #Left hip periacetabular osteotomy for hip dysplasia - pain appears to be well controlled today. management per ortho #Anemia - H/H dropped from on admission -stable -she has received some IVF which may account for some of the drop, but no obvious bleeding. #Hypotension - stable - fluid responsive. #Constipation - post op bowel regimen #Prophy - asa fluids- NS Lytes- WNL Nutrition- regular cor- Full Dispo -per ortho Subjective: Feeling well. Pain controlled. Objective: Vital Signs Temp Pulse Resp BP Pulse Ox 36.7 C 96 16 102/62 88 L 01/09/19 11:21 01/09/19 11:21 01/09/19 11:21 01/09/19 11:21 01/09/19 11:21 Laboratory Results 01/08/19 04:49 01/07/19 04:36 01/08/19 01/09/19 01/10/19 05:59 05:59 05:59 Intake Total 2960 1620 500 Output Total 2800 700 600 Balance 160 920 -100 - Physical Exam Constitutional: no apparent distress, appears nourished, not in pain Eyes: PERRL, anicteric sclera, EOMI Ears, Nose, Mouth, Throat: moist mucous membranes, hearing normal, ears appear normal Cardiovascular: No JVD, No tachycardia, No edema Respiratory: no respiratory distress, no rales or rhonchi, reduced air movement Gastrointestinal: normoactive bowel sounds, No tenderness, No ascites Skin: warm, normal color, No mottled Musculoskeletal: no joint effusions, joint tenderness, pain with ROM, generalized weakness Neurologic: AAOx3 Psychiatric: interacting appropriately, not anxious, not encephalopathic, thought process linear ICD10 Worksheet Patient Problems: Problems Problem Status Onset Hip dysplasia Acute
[2019-01-09 15:19] VITALS: BP 104/61
== END 2019-01-09 15:46 | disposition home or self-care (01) | DRG 517 ==
LOC: F3N 06:04
PROVIDERS: ADMIT Orthopaedic Surgery Sports Medicine; ATTEND Orthopaedic Surgery Sports Medicine
PROC: 0QS504Z Reposition Left Acetabulum with Internal Fixation Device, Open Approach (ICD-10-PCS; principal; 2019-01-06 08:15)
DX: Q65.89 Other specified congenital deformities of hip (principal); M25.852 Other specified joint disorders, left hip; K59.00 Constipation, unspecified; D64.9 Anemia, unspecified; E86.0 Dehydration
CPT/HCPCS: 97116-GP; 97161-GP; 97165-GO; 97535-GO; C1713; J0690; J1885; J2250; J2270; J2274; J2370; J2405; J2704; J2765; J2780; J3010